=== PATIENT | male | born 1940 | race Caucasian/White ===

== ENCOUNTER 2016-07-04 19:47 | Observation (INO) | payer OTHER ==
[~2016-07-04] VITALS: Ht 190.5 cm; Wt 113.0 kg
[~2016-07-04 19:47] MED LIST: ASPIR 8181 M1 PO; BETAPACE 120 M120 MG PO; BETAPACE80 MG PO; Betapace,Sorine PO; LISINOPRIL10 MG PO; LISINOPRIL5 MG PO; LOW DOSE ASPIRI81 M1 PO; MAGNESIUM CITR296 M1 PO; MIRALAX17 GM PO; SOTALOL80 MG PO; TYLENOL REGULA325 MG PO; XARELTO20 MG PO; Zestril,Prinivil PO
[2016-07-04] MEDS ORDERED: SIMVASTATIN20 MG PO (20:28)
[2016-07-04 20:40] LABS: PROTHROMBIN TIME 10.4 (9.2-11.2)
[2016-07-04 20:43] LABS: CHLORIDE 111 mEq/L (99-109); POTASSIUM 5.3 mEq/L (3.7-5.4); SODIUM 140 mEq/L (136-147)
[2016-07-04 20:44] LABS: GLUCOSE 125 mg/dL (70-99)
[2016-07-04 20:45] LABS: ANION GAP 15 MEQ/L (2-14)
[2016-07-04 20:46] LABS: TOTAL BILIRUBIN 0.6 mg/dL (0.0-1.0)
[2016-07-04 20:47] LABS: PTT 18.6 (25-32)
[2016-07-04 20:47] LABS: ALKALINE PHOSPHATASE 52 IU/L (3-129); GFR ESTIMATE (CALCULATED) > 59 mL/min/
[2016-07-04 20:48] LABS: UREA NITROGEN (BUN) 21 mg/dL (9-23)
[2016-07-04 20:52] LABS: TROP-I INTERPRETATION NEGATIVE; TROPONIN-I < 0.01 ng/mL (0.0-0.30)
[2016-07-04 20:59] LABS: HEMATOCRIT 43.9 % (38.0-50.0); MCH 31.7 PG (29.0-34.0); MCHC 34.9 G/DL (30.0-36.0); MCV 91.1 FL (86-99); MEAN PLAT.VOLUME 9.8 uM^3 (9.0-12.4); PLATELET COUNT 236 K/uL (156-360); RBC DIS.WIDTH-CV 13.2 % (11.8-14.6); RBC DIS.WIDTH-SD 44.5 % (39-53); RED BLOOD COUNT 4.82 M/uL (4.00-5.50); WHITE BLOOD COUNT 9.5 K/uL (4.1-10.2)
[2016-07-04 22:08] LABS: ADD MIUA? YES; BILIRUBIN NEGATIVE; BLOOD SMALL; COLOR YELLOW ((YELLOW)); GLUCOSE (STRIP) NEGATIVE; KETONES NEGATIVE; LEUKOCYTES NEGATIVE; NITRITE NEGATIVE; PROTEIN (STRIP) NEGATIVE; SPECIFIC GRAVITY 1.015 (1.000-1.030); UROBILINOGEN 0.2 MG/DL (0.2-1.0)
[2016-07-04 22:23] LABS: BACTERIA NONE SEEN /HPF; EPITHELIAL CELLS NONE SEEN /HPF; MUCUS TRACE /LPF; UCUL ADDED? NO; WHITE BLOOD CELLS 0-5 /HPF (0-5)
[2016-07-05 00:36] VITALS: BP 137/63
[2016-07-05 04:12] VITALS: BP 123/72
[2016-07-05 04:51] LABS: MCH 31.3 PG (29.0-34.0); MCHC 33.8 G/DL (30.0-36.0); MCV 92.5 FL (86-99); MEAN PLAT.VOLUME 10.3 uM^3 (9.0-12.4); PLATELET COUNT 236 K/uL (156-360); RBC DIS.WIDTH-CV 13.4 % (11.8-14.6); RBC DIS.WIDTH-SD 45.7 % (39-53); RED BLOOD COUNT 4.54 M/uL (4.00-5.50); WHITE BLOOD COUNT 8.9 K/uL (4.1-10.2)
[2016-07-05 05:12] LABS: TROP-I INTERPRETATION NEGATIVE; TROPONIN-I 0.02 ng/mL (0.0-0.30)
[2016-07-05 05:29] LABS: CHLORIDE 110 mEq/L (99-109); SODIUM 141 mEq/L (136-147)
[2016-07-05 05:31] LABS: GLUCOSE 104 mg/dL (70-99)
[2016-07-05 05:32] LABS: ANION GAP 12 MEQ/L (2-14)
[2016-07-05 05:33] LABS: TOTAL BILIRUBIN 0.6 mg/dL (0.0-1.0)
[2016-07-05 05:34] LABS: ALKALINE PHOSPHATASE 45 IU/L (3-129)
[2016-07-05 05:35] LABS: GFR ESTIMATE (CALCULATED) > 59 mL/min/
[2016-07-05 05:36] LABS: UREA NITROGEN (BUN) 19 mg/dL (9-23)
[2016-07-05 05:39] LABS: POTASSIUM 4.1 mEq/L (3.7-5.4)
[2016-07-05 08:18] VITALS: BP 154/74
[2016-07-05 10:50] LABS: TROP-I INTERPRETATION NEGATIVE; TROPONIN-I < 0.01 ng/mL (0.0-0.30)
[2016-07-05] MEDS ORDERED: COUMADIN4 MG PO (11:03)
[2016-07-05 12:07] VITALS: BP 133/63
[2016-07-05] MEDS ORDERED: SOTALOL80 MG PO (15:18)
== END 2016-07-05 15:31 | disposition home or self-care (01) ==
LOC: EME 19:47 → EDOF 23:17 → 5WEST 23:17
PROVIDERS: Emergency Medicine; Internal Medicine
DX: I48.0 Paroxysmal atrial fibrillation (principal); I10 Essential (primary) hypertension; R94.31 Abnormal electrocardiogram [ECG] [EKG]; E78.00 Pure hypercholesterolemia, unspecified; E78.5 Hyperlipidemia, unspecified; F32.9 Major depressive disorder, single episode, unspecified
CPT/HCPCS: 71010; 80053; 81003; 83605; 84484; 85027; 85027 GA; 85610; 85730; 87040; 93005; 99281; 99285; G0378; J7030; J7120

== ENCOUNTER 2016-08-06 16:50 | Emergency (ER) | payer OTHER ==
[~2016-08-06] VITALS: Ht 190.5 cm; Wt 110.3 kg
[~2016-08-06 16:50] MED LIST changes: +COUMADIN4 MG PO; +SIMVASTATIN20 MG PO
[2016-08-06 17:16] LABS: HEMATOCRIT 47.5 % (38.0-50.0); MCH 31.3 PG (29.0-34.0); MCHC 34.1 G/DL (30.0-36.0); MCV 91.7 FL (86-99); PLATELET COUNT 255 K/uL (156-360); RBC DIS.WIDTH-CV 13.2 % (11.8-14.6); RBC DIS.WIDTH-SD 44.5 % (39-53); RED BLOOD COUNT 5.18 M/uL (4.00-5.50)
[2016-08-06 17:29] LABS: CHLORIDE 108 mEq/L (99-109); POTASSIUM 4.2 mEq/L (3.7-5.4); SODIUM 139 mEq/L (136-147)
[2016-08-06 17:31] LABS: GLUCOSE 98 mg/dL (70-99)
[2016-08-06 17:33] LABS: ANION GAP 12 MEQ/L (2-14)
[2016-08-06 17:35] LABS: GFR ESTIMATE (CALCULATED) > 59 mL/min/
[2016-08-06 17:36] LABS: UREA NITROGEN (BUN) 19 mg/dL (9-23)
[2016-08-06 17:37] LABS: TROP-I INTERPRETATION NEGATIVE; TROPONIN-I < 0.01 ng/mL (0.0-0.30)
[2016-08-06 19:10] VITALS: BP 140/79
== END 2016-08-06 19:12 | disposition home or self-care (01) ==
LOC: EME 16:50
DX: I48.0 Paroxysmal atrial fibrillation (principal); J18.9 Pneumonia, unspecified organism; Z88.1 Allergy status to other antibiotic agents; Z88.6 Allergy status to analgesic agent; Z79.82 Long term (current) use of aspirin; I10 Essential (primary) hypertension; E78.5 Hyperlipidemia, unspecified; Z85.828 Personal history of other malignant neoplasm of skin; Z79.01 Long term (current) use of anticoagulants
CPT/HCPCS: 71020; 80048; 84484; 85027; 93005; 99281; 99284

== ENCOUNTER 2017-02-18 03:32 | Emergency (ER) | payer OTHER ==
[~2017-02-18] VITALS: Ht 190.5 cm; Wt 109.3 kg
[2017-02-18 05:05] LABS: HEMATOCRIT 44.6 % (38.0-50.0); MCH 31.8 PG (29.0-34.0); MCHC 34.5 G/DL (30.0-36.0); MEAN PLAT.VOLUME 9.8 uM^3 (9.0-12.4); PLATELET COUNT 229 K/uL (156-360); RBC DIS.WIDTH-CV 13.2 % (11.8-14.6); RBC DIS.WIDTH-SD 45.1 % (39-53); RED BLOOD COUNT 4.85 M/uL (4.00-5.50); WHITE BLOOD COUNT 6.9 K/uL (4.1-10.2)
[2017-02-18 05:19] LABS: CHLORIDE 110 mEq/L (99-109); POTASSIUM 4.2 mEq/L (3.7-5.4); SODIUM 141 mEq/L (136-147)
[2017-02-18 05:20] LABS: GLUCOSE 102 mg/dL (70-99)
[2017-02-18 05:22] LABS: ANION GAP 9 MEQ/L (2-14)
[2017-02-18 05:24] LABS: GFR ESTIMATE (CALCULATED) > 59 mL/min/ (58.99-99999)
[2017-02-18 05:25] LABS: UREA NITROGEN (BUN) 20 mg/dL (9-23)
[2017-02-18 05:28] LABS: TROP-I INTERPRETATION NEGATIVE; TROPONIN-I < 0.01 ng/mL (0.0-0.30)
[2017-02-18 05:29] LABS: PROTHROMBIN TIME 22.2 SEC (10.2-12.9)
[2017-02-18 05:32] LABS: PTT 35.3 SEC (25-37)
[2017-02-18 06:30] VITALS: BP 117/74
[2017-02-18 08:15] LABS: TROP-I INTERPRETATION NEGATIVE; TROPONIN-I < 0.01 ng/mL (0.0-0.30)
== END 2017-02-18 09:09 | disposition home or self-care (01) ==
LOC: EME 03:32
PROVIDERS: Emergency Medicine
DX: I48.91 Unspecified atrial fibrillation (principal); Z79.01 Long term (current) use of anticoagulants; E78.5 Hyperlipidemia, unspecified; I10 Essential (primary) hypertension; K21.9 Gastro-esophageal reflux disease without esophagitis; Z85.828 Personal history of other malignant neoplasm of skin; Z88.6 Allergy status to analgesic agent
CPT/HCPCS: 71020; 80048; 84484; 85027; 85610; 85730; 93005; 99281; 99283